=== PATIENT | female | born 1975 ===

== ENCOUNTER 2021-12-12 19:43 | Outpatient (REF) | payer OTHER, SELFPAY ==
[2021-12-13 15:17] LABS: Chlamydia Result Negative (Negative); GC Result Negative (Negative)
== END 2021-12-12 19:44 | disposition home or self-care (01) ==
LOC: LBN 19:43
PROVIDERS: Visit Provider Physician Assistant Medical
DX: R35.0 Frequency of micturition (principal)
CPT/HCPCS: 87491; 87591; 87480; 87510; 87660